=== PATIENT | male | born 1935 | race Caucasian/White ===

== ENCOUNTER 2018-05-15 05:45 | Day surgery (SDC) | payer MEDICARE, OTHER ==
[~2018-05-15] VITALS: Ht 167.6 cm; Wt 77.3 kg
[2018-05-15] VITALS (20 sets, daily range): BP systolic 112–131; BP diastolic 60–76; PULSE 63–70; RESP 11–21; Ht 167.6 cm; Wt 77.3 kg
[2018-05-15] MEDS ORDERED: DONE10TA7 PO (06:43)
[2018-05-15] MEDS ORDERED: SERT50TA6 PO (06:44)
[2018-05-15] MEDS ORDERED: GABA300C16 PO (06:44)
[2018-05-15] MEDS ORDERED: AMLO-147 PO (06:44)
[2018-05-15] MEDS ORDERED: DOXA2TAB PO (06:44)
[2018-05-15] MEDS ORDERED: IBAN150T7 PO (06:44)
[2018-05-15] MEDS ORDERED: MIRA50TA PO (06:44)
[2018-05-15] MEDS ORDERED: EMPA10TA PO (06:44)
[2018-05-15] MEDS ORDERED: METF500T24 PO (06:44)
[2018-05-15] MEDS ORDERED: OLME40TA13 PO (06:44)
[2018-05-15] MEDS ORDERED: HYDR-3672 PO (06:44)
[2018-05-15] MEDS ORDERED: OMEP40CA6 PO (06:44)
[2018-05-15] MEDS ORDERED: METO-336 PO (06:44)
[2018-05-15] MEDS ORDERED: FENO48TA4 PO (06:44)
[2018-05-15] MEDS ORDERED: PRAV20TA2 PO (06:44)
[2018-05-15] MEDS ORDERED: ASPI325T30 PO (06:46)
[2018-05-15] MEDS ORDERED: LIDOCAINE 1% (MDV) 20 ML INJ ONE (07:38)
[2018-05-15] MEDS ORDERED: HEPARIN 1000 UNITS/ML 10 ML INJ ONE (07:38)
[2018-05-15] MEDS ORDERED: FENTAnyl 50 MCG/ML VIAL ONE (07:38)
[2018-05-15] MEDS ORDERED: IODIXANOL LOCM 100 ML BTL ONE (07:38)
[2018-05-15] MEDS ORDERED: MIDAZOLAM 1 MG/ML 2 ML INJ ONE (07:38)
[2018-05-15] MEDS ORDERED: NITROGLYCERIN (IC) 100 MCG/ML INJ ONE (07:39)
[2018-05-15] MEDS ORDERED: SOD CHLORIDE 0.9% 500 ML ONE (07:39)
[2018-05-15] MEDS ORDERED: ASPIRIN 325 MG TAB ONE (07:39)
[2018-05-15] MEDS ORDERED: VERAPAMIL 5 MG INJ ONE ×2 (07:39→07:49)
[2018-05-15] MEDS ORDERED: SOD CHLORIDE 0.9% 1,000 ML IV SCH (08:21)
--- NOTE | 2018-05-15 08:21 | OPR ---
Date/Time of Note Date/Time of Note DATE: 05/15/18 TIME: 08:17 Operative Report Procedure Date: May 15, 2018 Preoperative Diagnosis chest pain. abnormal stress Postoperative Diagnosis same Operation/Procedure Performed [facility] Surgeon see signature line Story Analyst claritza Anesthesia Type: moderate sedation Estimated Blood Loss: minimal Transfusion none Specimen none Grafts/Implants none Complications none Procedure Description Procedure performed: 1. Left heart catheterization, selective right and left coronary angiogram 2. right femoral angiogram and closure of the right femoral artery using a perclose device 3. moderate sedation for more than 30 minutes. Vehicle Body Maker: Aiden La MD Indication:: 82-year-old gentleman with recurrent chest pain and mildly abnormal stress test showing reversible ischemia in the inferior wall Findin. Left main coronary artery: Is normal. 2. Left anterior descending artery: Its a small size vessel and does not go around the apex. It has no significant stenosis 3. Left circumflex artery: Is nondominant. It has no significant stenosis . 4. Right coronary artery: Is a dominant vessel. It has 30 % stenosis at maximal right coronary artery 5. Ramus intermediate is a moderate size vessel with mild luminal irregularity 6. LV pressure: 126/25 ; Aortic pressure by pull back is 139/60 Written informed consent with obtained after risks benefits and alternatives discussed with the patient in detail. risks including but not limited to risk of infection vascular complications, bleeding complications, [place] stroke arrhythmia renal failure at even were discussed with the patient in detail. Patient was brought into the cardiac tutorial laboratory supervisor and placed in supine position. Right and left groin area was prepped and draped in regular sterile fashion and then he was in anesthetized using 1% lidocaine. Right femoral artery was cannulated and using modified seldinger technique a 6 Divehi sheath was placed in the right femoral artery. Right femoral angiogram was performed. JL4 catheter was advanced and engaged into the left main coronary artery and angiographic view was obtained. The JR4 catheter was advanced and engaged right coronary artery angiographic view was obtained. JR4 was advanced to engage the left ventricle hemodynamics as recorded by pullback aortic pressure was measured Patient tolerated procedure well with no complication. Patient is to be transferred to recovery room in stable condition. Perclose was successfully deployed contrast used: 45 cc Conclusions: No significant obstructive coronary artery disease recommend medical therapy AIDEN LA MD May 15, 2018 08:21
== END 2018-05-15 12:45 | disposition home or self-care (01) ==
LOC: SDS 05:45
PROVIDERS: ATTEND Internal Medicine Interventional Cardiology
DX: R07.9 Chest pain, unspecified (principal); R94.39 Abnormal result of other cardiovascular function study; E11.9 Type 2 diabetes mellitus without complications; E78.5 Hyperlipidemia, unspecified; I10 Essential (primary) hypertension
CPT/HCPCS: 80053; 80061; 82550; 82553; 82962; 84484; 85025; 85610; 85730; 93458; C1760; C1887; J1644; J2250; J3010; J7040; Q9967